=== PATIENT | female | born 1980 | race Caucasian/White ===

== ENCOUNTER 2020-06-12 08:24 | Emergency (ER) | payer OTHER ==
--- NOTE | 2020-06-12 09:01 | ER Document Report ---
ED General - General Chief Complaint: Knee Pain Stated Complaint: RIGHT KNEE PAIN Time Seen by Provider: 06/12/20 09:00 Primary Care Provider: YOEL PITTS MD [ACTIVE STAFF] - Follow up as needed FAHAD MARTIN MD [NO LOCAL MD] - Follow up as needed - HPI Notes: 39-year-old female presents to the emergency room for evaluation of right knee pain that started to aggravate her 3 weeks ago but she states she initially injured her right knee years ago at a rodeo, she went to step down and on uneven ground and she did hear a snap. She did go to the emergency room thereafter they told her that her knee was just sprained. Patient states that over the course of the last 3 weeks the pain has become progressively worse, is 5 out of 5. Denies any new trauma. Denies any numbness or tingling down arms or legs. Has tried icing and heat with some relief. Has not followed up with an corporate communications specialist. Last menstrual cycle was 2 weeks ago. Denies fevers, chills, chest pain,palpitations, shortness of breath, dyspnea, nausea, vomiting, diarrhea, abdominal pain, hematuria,blurred vision, double vision, loss of vision, speech changes, LH, dizziness, syncope, headaches, wheezing, ST, URI, neck pain, weakness, bowel or bladder dysfunction, saddle anesthesia, numbness or tingling in bilateral upper or lower extremities equally, muscle paralysis, weakness in bilateral upper or lower extremities equally or rash. - Related Data Allergies/Adverse Reactions: procaine [From Novocain] Allergy (Verified 06/12/20 08:49) shellfish derived Allergy (Verified 06/12/20 08:49) Past Medical History - General Information source: Patient - Social History Smoking Status: Unknown if Ever Smoked Family History: Reviewed & Not Pertinent Past Surgical History: Reports: Hx Section - x2, Hx Hysterectomy Review of Systems - Review of Systems Constitutional: No symptoms reported EENT: No symptoms reported Cardiovascular: No symptoms reported Respiratory: No symptoms reported Gastrointestinal: No symptoms reported Genitourinary: No symptoms reported Female Genitourinary: No symptoms reported Musculoskeletal: See HPI Skin: No symptoms reported Hematologic/Lymphatic: No symptoms reported Neurological/Psychological: No symptoms reported Physical Exam - Vital signs Vitals: Temp Pulse Resp BP Pulse Ox 98.6 F 94 16 135/79 H 98 11/28/20 08:33 06/12/20 08:33 06/12/20 08:33 06/12/20 08:33 06/12/20 08:33 - Notes Notes: MEDICATIONS: I agree with the patient medications as charted by the RN. ALLERGIES: I agree with the allergies as charted by the RN. PAST MEDICAL HISTORY/PAST SURGICAL HISTORY: Reviewed and agree as charted by RN. SOCIAL HISTORY: Reviewed and agree as charted by RN. FAMILY HISTORY: No significant familial comorbid conditions directly related to patient complaint EXAM: Reviewed vital signs as charted by RN. PHYSICAL EXAMINATION: reviewed vital signs by RN GENERAL: Well-appearing, well-nourished and in no acute distress. HEAD: Atraumatic, normocephalic. EYES: Pupils equal round and reactive to light, extraocular movements intact, conjunctiva are normal. ENT: Nares patent, oropharynx clear without exudates. Moist mucous membranes. NECK: Normal range of motion, supple without lymphadenopathy LUNGS: Breath sounds clear to auscultation bilaterally and equal. No wheezes rales or rhonchi. HEART: Regular rate and rhythm without murmurs ABDOMEN: Soft, nontender, nondistended abdomen. No guarding, no rebound. No masses appreciated. Female : deferred Musculoskeletal: Normal range of motion, no pitting or edema. No cyanosis. right knee pain with palpation to medial and lateral aspect of knee with noted swelling. negative ester's sign. anterior and posterior drawer test negative. noted pain with inversion. Dtr + 2 in BLE. Full motor and sensory function to BLE equally. No open wounds. No induration or drainage. Strength 5 out of 5 bilaterally equally. Ankle examination normal. Squeeze test negative. Hip examination normal. Pulses + 2 bilaterally and equally.negative squeeze bilaterally and equally. NEUROLOGICAL: Cranial nerves grossly intact. Normal speech, normal gait. Normal sensory, motor exams PSYCH: Normal mood, normal affect. SKIN: Warm, Dry, normal turgor, no rashes or lesions noted. Course - Re-evaluation Re-evalutation: 06/12/20 10:47 Afebrile vital stable no distress. Nurses notes reviewed. X-ray of right knee negative for any acute fracture dislocation or foreign body per radiology. Discussed with patient that she does need to follow-up with an corporate communications specialist. Patient placed in an [place] bandage, a right knee brace and crutches. Advised to follow-up with corporate communications specialist. Advised to not drink, drive or operate heavy machinery while taking [place] as a can cause sedation or impairment of cognitive function. Advised alternating Tylenol and ibuprofen for pain cont rol, [place] for breakthrough pain. After performing a Medical Screening Examination, I estimate there is LOW risk for OPEN FRACTURE, COMPARTMENT SYNDROME, DEEP VENOUS THROMBOSIS, ACUTE TENDON RUPTURE, or NEUROVASCULAR INJURY thus I consider the discharge disposition reasonable. I have reevaluated this patient multiple times and no significant life threatening changes are noted. The patient and I have discussed the diagnosis and risks, and we agree with discharging home to closely follow-up with their primary doctor or the referral orthopedist with the understanding that symptoms and presentations can change. We also discussed returning to the Emergency Department immediately if new or worsening symptoms occur. We have discussed the symptoms which are most concerning (e.g., changing or worsening pain, numbness, weakness) that necessitate immediate return 06/12/20 10:47 - Vital Signs Vital signs: Temp Pulse Resp BP Pulse Ox 98.6 F 94 16 135/79 H 98 06/12/20 08:33 06/12/20 08:33 06/12/20 08:33 06/12/20 08:33 06/12/20 08:33 Discharge - Discharge Clinical Impression: Right knee pain Qualifiers: Chronicity: acute Qualified Code(s): M25.561 - Pain in right knee Condition: Stable Disposition: HOME, SELF-CARE Instructions: Use of Crutches ([facility]), Ice & Elevation ([facility]), Suspected Internal Knee Injury ([facility]), Knee Immobilizing Splint ([facility]), Oral Narcotic Medication ([facility]), Sprained Knee ([facility]) Additional Instructions: Your x-ray was negative for any acute fracture dislocation or foreign body. You were given crutches, [place] bandage, knee brace and advised to follow-up with the corporate communications specialist within the next 24 to 72 hours. Please elevate above level of heart, apply ice 20 minutes on 20 minutes off and then switch over to heat 20 minutes on 20 minutes off several times a day. Please do not drive, drink alcohol or operate machinery while taking narcotics as a cause sedation or impairment of cognitive function. Please follow-up with your primary care provider within the next 3 days. Return immediately for any new or worsening symptoms. Follow up with primary care provider, call tomorrow to make followup appointment. Forms: Return to Work Referrals: FAHAD MARTIN MD [NO LOCAL MD] - Follow up as needed YOEL PITTS MD [ACTIVE STAFF] - Follow up as needed
--- NOTE | 2020-06-12 09:43 | RADIOLOGY REPORT (SQ) ---
EXAM DESCRIPTION: KNEE RIGHT 4 VIEWS IMAGES COMPLETED DATE/TIME: 06/12/2020 9:15 am REASON FOR STUDY: right knee pain, bony tenderness COMPARISON: None. NUMBER OF VIEWS: Four views. TECHNIQUE: AP, lateral, and both oblique radiographic images acquired of the right knee. LIMITATIONS: None. FINDINGS: MINERALIZATION: Normal. BONES: No acute fracture or dislocation. No worrisome bone lesions. No significant osteophytes. JOINT: No effusion. No chondrocalcinosis. OTHER: No other significant finding. IMPRESSION: NEGATIVE STUDY OF THE RIGHT KNEE. NO EXPLANATION FOR PAIN. TECHNICAL DOCUMENTATION: JOB ID: [id number] 2010 [employer]- All Rights Reserved Reading location - IP/workstation name: [email or web address]
[2020-06-12] MEDS ORDERED: HYDROCODONE/ACETAMINOPHEN 5-325 MG (6 TAB/ER DISP) PO PRN (10:00)
[2020-06-12 11:18] VITALS: BP 120/76
== END 2020-06-12 11:18 | disposition home or self-care (01) ==
LOC: ER 08:24
DX: M25.561 Pain in right knee (principal); Z90.710 Acquired absence of both cervix and uterus
CPT/HCPCS: 99284